=== PATIENT | male | born 1990 | race Caucasian/White ===

== ENCOUNTER 2019-08-17 08:50 | Emergency (ER) | payer SELFPAY ==
[2019-08-17] MEDS ORDERED: LORazepam 2 MG/ML VIAL ONE (09:22)
[2019-08-17 09:30] LABS: Protime INR 1.06
[2019-08-17 09:31] LABS: Hematocrit 42.2 % (39.6-49.0); Lymphocytes % 27.8 % (15.3-44.8); RBC Red Blood Cell Count 5.18 M/uL (4.33-5.43)
[2019-08-17 09:48] LABS: ALT/SGPT 44 U/L (12-78); AST/SGOT 31 U/L (15-37); Albumin 4.1 g/dL (3.4-5.0); Alkaline Phosphatase 104 U/L (45-117); BUN Blood Urea Nitrogen 13 mg/dL (7-18); Bicarbonate 28 mmol/L (21-32); Bilirubin Direct < 0.1 mg/dL (0-0.2); Bilirubin Total 0.4 mg/dL (0.2-1.0); Glucose Level 104 mg/dL (74-106); Magnesium 2.1 mg/dL (1.8-2.4); NT PRO-BNP 15 pg/mL (<125); Potassium 3.9 mmol/L (3.5-5.1); Protein, Total 7.9 g/dL (6.4-8.2); Sodium Level 140 mmol/L (136-145); Troponin (Emerg Dept Use Only) < 0.02 ng/mL (0.0-0.045)
--- NOTE | 2019-08-17 10:25 | ER ---
Nurse's Notes [facility] Name: Jakob Mckeon Age: 29 yrs Sex: Male : 1990 Arrival Date: 08/17/2019 Time: 08:53 Bed 8 Private MD: Melita Toure K Diagnosis: Chest pain, unspecified Presentation: 08/16 09:06 Chief complaint: Left sided chest pressure that radiates to left arm and left upper arm hb numbness upon waking today. Coronavirus screen: Proceed with normal triage. Ebola Screen: No symptoms or risks identified at this time. Initial Sepsis Screen: Does the patient meet any 2 criteria? No. Patient's initial sepsis screen is negative. Does the patient have a suspected source of infection? No. Patient's initial sepsis screen is negative. Risk Assessment: Do you want to hurt yourself or someone else? Patient reports no desire to harm self or others. Onset of symptoms was August 17, 2019 at 06:00. 09:06 Method Of Arrival: Ambulatory hb 09:06 Acuity: REMI 3 hb Triage Assessment: 09:08 General: Appears in no apparent distress. Behavior is calm, cooperative. Pain: Pain hb radiates to left arm Pain currently is 3 out of 10 on a pain scale. EENT: No signs and/or symptoms were reported regarding the EENT system. Neuro: Level of Consciousness is awake, alert, obeys commands, Oriented to person, place, time, situation. Cardiovascular: Capillary refill < 3 seconds Patient's skin is warm and dry. Respiratory: Airway is patent Respiratory effort is even, unlabored, Respiratory pattern is regular, symmetrical. GI: No signs and/or symptoms were reported involving the gastrointestinal system. : No signs and/or symptoms were reported regarding the genitourinary system. Derm: Skin is pink, warm \T\ dry. Musculoskeletal: No signs and/or symptoms reported regarding the musculoskeletal system. Historical: - Allergies: :08 No Known Drug Allergies; hb - Home Meds: :08 None [Active]; hb - PMHx: :08 None; hb - PSHx: 09:08 eye sx; hb - Immunization history:: Adult Immunizations up to date. - Social history:: Smoking status: Patient reports the use of cigarette tobacco products, smokes one-half pack cigarettes per day. Screenin:09 Abuse screen: Denies threats or abuse. Denies injuries from another. Nutritional hb screening: No deficits noted. Tuberculosis screening: No symptoms or risk factors identified. Fall Risk None identified. Assessment: 09:08 General: see triage assessment. hb 10:00 Reassessment: Patient appears in no apparent distress at this time. Patient and/or hb family updated on plan of care and expected duration. Pain level reassessed. Patient is alert, oriented x 3, equal unlabored respirations, skin warm/dry/pink. Vital Signs: 09:06 BP 139 / 90; Pulse 73; Resp 16; Temp 97.8; Pulse Ox 100% ; Weight 85.73 kg; Height 6 hb ft. 1 in. (185.42 cm); Pain 3/10; 10:00 BP 121 / 83; Pulse 70; Resp 15; Pulse Ox 99% on R/A; hb 09:06 Body Mass Index 24.94 (85.73 kg, 185.42 cm) hb ED Course: 08:53 Patient arrived in ED. mr 08:54 Melita Toure MD is Private Physician. mr 09:00 Jeremiah Myers PA is PHCP. jmm 09:00 Lawson Hoff MD is Attending Physician. jmm 09:06 Ely Jeffery, NIDIA is Primary Nurse. hb 09:07 Triage completed. hb 09:08 Arm band placed on. hb 09:09 Patient has correct armband on for positive identification. Placed in gown. Bed in low hb position. Call light in reach. Side rails up X 1. 09:16 Inserted saline lock: 20 gauge in right antecubital area, using aseptic technique. hb Blood collected. 09:22 EKG done, by ED staff, reviewed by Jeremiah MAYFIELD. dh3 09:36 XRAY Chest (1 view) In Process Unspecified. EDMS 10:24 Melita Toure MD is Referral Physician. [facility] 10:43 No provider procedures requiring assistance completed. IV discontinued, intact, hb bleeding controlled, No redness/swelling at site. Pressure dressing applied. Administered Medications: 09:18 Drug: Ativan 0.5 mg Route: IVP; Site: right antecubital; hb Outcome: 10:24 Discharge ordered by . jm 10:43 Discharged to home ambulatory. hb 10:43 Condition: stable 10:43 Discharge instructions given to patient, Instructed on discharge instructions, follow up and referral plans. medication usage, Demonstrated understanding of instructions, follow-up care, medications. 10:44 Patient left the ED. Signatures: Dispatcher [employer] EDJeremiah Colin PA PA jmm Rivera, Mary mr Ely Jeffery RN RN [place] Damon [facility]
--- NOTE | 2019-08-17 10:25 | EDPHYS ---
Physician Documentation [facility] Name: Jakob Mckeon Age: 29 yrs Sex: Male : 1990 Arrival Date: 08/17/2019 Time: 08:53 Bed 8 Private MD: Melita Toure K ED Physician Lawson Hoff HPI: 08/16 09:16 This 29 yrs old Male presents to ER via Ambulatory with complaints of Chest jmm Pressure. 09:16 The patient or guardian reports chest pain that is located primarily in the substernal jmm area. The pain does not radiate. Associated signs and symptoms: Pertinent positives: diarrhea. The chest pain is described as a pressure. Duration: The patient or guardian reports a single episode, that is still ongoing, but improving. Modifying factors: The symptoms are alleviated by nothing. the symptoms are aggravated by nothing. This is a 29 year old male with no chronic medical conditions that presents to the ED with complaints of left sided substernal chest pain described as pressure beginning this morning at 0630. Patient also admits to 1 episode of loose stool. Patient denies vomiting or abdominal pain. . Historical: - Allergies: 09:08 No Known Drug Allergies; hb - Home Meds: 09:08 None [Active]; hb - PMHx: 09:08 None; hb - PSHx: 09:08 eye sx; hb - Immunization history:: Adult Immunizations up to date. - Social history:: Smoking status: Patient reports the use of cigarette tobacco products, smokes one-half pack cigarettes per day. ROS: 09:16 Constitutional: Negative for fever, chills, and weight loss. jmm 09:16 Cardiovascular: Positive for chest pain. 09:16 Abdomen/GI: Positive for diarrhea, Negative for vomiting. 09:16 All other systems are negative. Exam: 09:16 Constitutional: This is a well developed, well nourished patient who is awake, alert, jmm and in no acute distress. Head/Face: atraumatic. Eyes: EOMI, no conjunctival erythema appreciated ENT: Moist Mucus Membranes Neck: Trachea midline, Supple Chest/axilla: Normal chest wall appearance and motion. Cardiovascular: Regular rate and rhythm. No edema appreciated Respiratory: Normal respirations, no respiratory distress appreciated Abdomen/GI: Non distended, soft Back: Normal ROM Skin: General appearance color normal MS/ Extremity: Moves all extremities, no obvious deformities appreciated, no edema noted to the lower extremities Neuro: Awake and alert, normal gait Psych: Behavior is normal, Mood is normal, Patient is cooperative and pleasant 09:40 ECG was reviewed by the Attending Physician. [facility] Vital Signs: 09:06 BP 139 / 90; Pulse 73; Resp 16; Temp 97.8; Pulse Ox 100% ; Weight 85.73 kg; Height 6 hb ft. 1 in. (185.42 cm); Pain 3/10; 10:00 BP 121 / 83; Pulse 70; Resp 15; Pulse Ox 99% on R/A; hb 09:06 Body Mass Index 24.94 (85.73 kg, 185.42 cm) hb MDM: 09:03 Patient medically screened. [facility] 10:18 Data reviewed: vital signs, nurses notes, lab test result(s), EKG, radiologic studies, [facility] plain films. ED course: PERC NEGATIVE. HEART SCORE = 0. ED course: Patient is advised to follow up with pcp and otherwise given strict return precautions. Patient understood and agrees with the plan of care. . 08/16 09:09 Order name: Basic Metabolic Panel; Complete Time: 09:50 [facility] 08/16 09:09 Order name: CBC with Diff; Complete Time: 09:40 [facility] 08/16 09:09 Order name: LFT's; Complete Time: 09:50 [facility] 08/16 09:09 Order name: Magnesium; Complete Time: 09:50 [facility] 08/16 09:09 Order name: NT PRO-BNP; Complete Time: 09:50 [facility] 08/16 09:09 Order name: PT-INR; Complete Time: 09:40 [facility] 08/16 09:09 Order name: Troponin (emerg Dept Use Only); Complete Time: 09:50 [facility] 08/16 09:09 Order name: XRAY Chest (1 view) [facility] 08/16 09:09 Order name: EKG; Complete Time: 09:10 [facility] 08/16 09:09 Order name: Cardiac monitoring; Complete Time: 09:18 [facility] 08/16 09:09 Order name: EKG - Nurse/Tech; Complete Time: 09:19 [facility] 08/16 09:09 Order name: IV Saline Lock; Complete Time: :18 [facility] 08/16 09:09 Order name: Labs collected and sent; Complete Time: [facility] 08/16 09:09 Order name: O2 Per Protocol; Complete Time: [facility] 08/16 09: Order name: O2 Sat Monitoring; Complete Time: EC:40 Rate is 62 beats/min. Rhythm is regular. QRS Bradford is Normal. NE interval is normal. QRS jmm interval is normal. QT interval is normal. No Q waves. T waves are Normal. No ST changes noted. Reviewed by me. Administered Medications: Drug: Ativan 0.5 mg Route: IVP; Site: right antecubital; hb Disposition: 14:17 Co-signature as Attending Physician, Lawson Hoff MD. rn Disposition: 08/17/19 10:24 Discharged to Home. Impression: Chest pain, unspecified. - Condition is Stable. - Discharge Instructions: Nonspecific Chest Pain. - Medication Reconciliation Form, Thank You Letter, Antibiotic Education, Prescription Opioid Use form. - Follow up: Melita Toure MD; When: 1 - 2 days; Reason: Recheck today's complaints, Continuance of care, Re-evaluation by your physician. Signatures: Dispatcher [employer] EDMS Jeremiah Myers PA PA [facility] Lawson Hoff MD MD rn Baxter, Heather, RN RN Corrections: (The following items were deleted from the chart) 10:44 10:24 08/17/2019 10:24 Discharged to Home. Impression: Chest pain, unspecified. hb Condition is Stable. Forms are Medication Reconciliation Form, Thank You Letter, Antibiotic Education, Prescription Opioid Use. Follow up: Melita Toure; When: 1 - 2 days; Reason: Recheck today's complaints, Continuance of care, Re-evaluation by your physician. [facility]
--- NOTE | 2019-08-17 10:51 | RAD REPORT ---
EXAM DESCRIPTION: Ac Single View08/17/2019 9:38 am CLINICAL HISTORY: Chest pain COMPARISON: 2017 FINDINGS: The lungs appear clear of acute infiltrate. The heart is normal size IMPRESSION: No acute abnormalities displayed
[2019-08-17 10:52] VITALS: TEMP 97.8
[2019-08-17 10:53] VITALS: BP 121/83; O2SAT 99
== END 2019-08-17 10:44 | disposition home or self-care (01) ==
LOC: ER 08:50
DX: R07.9 Chest pain, unspecified (principal); R19.7 Diarrhea, unspecified; F17.210 Nicotine dependence, cigarettes, uncomplicated
CPT/HCPCS: 36415; 71045; 80048; 80076; 83735; 83880; 84484; 85025; 85610; 93005; 96374; 99284

== ENCOUNTER 2020-06-19 19:59 | Emergency (ER) | payer SELFPAY ==
[2020-06-19] MEDS ORDERED: CLINDAMYCIN IV 150 MG/ML (4 mL) VIAL ONE (21:52)
--- NOTE | 2020-06-19 21:57 | ER ---
Nurse's Notes [facility] Name: Jakob Mckeon Age: 29 yrs Sex: Male : 1990 Arrival Date: 06/19/2020 Time: 20:02 Bed 8 Private MD: Diagnosis: Dental pain Presentation: 06/19 20:31 Chief complaint: Patient states: Woke up this morning with swelling on L side of face ca1 and L jaw, L side of neck. Denies difficulty breathing. Reports pain with swallowing. Coronavirus screen: Client denies travel out of the [place] in the last 14 days. At this time, the client does not indicate any symptoms associated with coronavirus-19. Ebola Screen: Patient negative for fever greater than or equal to 101.5 degrees Fahrenheit, and additional compatible Ebola Virus Disease symptoms Patient denies exposure to infectious person. Patient denies travel to an Ebola-affected area in the 21 days before illness onset. No symptoms or risks identified at this time. Initial Sepsis Screen: Does the patient meet any 2 criteria? No. Patient's initial sepsis screen is negative. Does the patient have a suspected source of infection? No. Patient's initial sepsis screen is negative. Risk Assessment: Do you want to hurt yourself or someone else? Patient reports no desire to harm self or others. 20:31 Method Of Arrival: Ambulatory ca1 20:31 Acuity: REMI 3 ca1 21:40 Onset of symptoms is unknown. rv Historical: - Allergies: 20:33 No Known Allergies; ca1 - Home Meds: 20:33 None [Active]; ca1 - PMHx: 20:33 None; ca1 - PSHx: 20:33 eye surgery; ca1 - Immunization history:: Flu vaccine is not up to date. - Social history:: Smoking status: Patient reports use of chewing tobacco. Screenin:40 Abuse screen: Denies threats or abuse. Denies injuries from another. Nutritional rv screening: No deficits noted. Tuberculosis screening: No symptoms or risk factors identified. Fall Risk None identified. Assessment: 21:39 General: Appears uncomfortable, Behavior is calm, cooperative. Pain: Complains of pain rv in left cheek and left jaw. Neuro: Level of Consciousness is awake, alert, obeys commands, Oriented to person, place, time, situation. Cardiovascular: Patient's skin is warm and dry. Respiratory: Airway is patent Respiratory effort is even, unlabored. Derm: Skin is intact. Vital Signs: 20:31 BP 126 / 78; Pulse 81; Resp 16 S; Temp 98(TE); Pulse Ox 100% on R/A; Weight 81.65 kg ca1 (R); Height 6 ft. 0 in. (182.88 cm) (R); Pain 6/10; 22:13 BP 121 / 76; Pulse 76; Resp 16; Pulse Ox 100% on R/A; rv 20:31 Body Mass Index 24.41 (81.65 kg, 182.88 cm) ca1 ED Course: 20:02 Patient arrived in ED. bp1 20:33 Triage completed. ca1 20:33 Arm band placed on right wrist. ca1 21:04 Wild Helm NP is PHCP. pm1 21:04 Balwinder Reis MD is Attending Physician. pm1 21:20 Antwan Doe RN is Primary Nurse. rv 21:40 Patient has correct armband on for positive identification. Pulse ox on. NIBP on. rv 22:12 No provider procedures requiring assistance completed. Patient did not have IV access rv during this emergency room visit. Administered Medications: 21:39 Drug: Clindamycin 600 mg {Note: given right and left deltoid..} Route: IM; Site: left rv deltoid; 22:13 Follow up: Response: No adverse reaction rv Outcome: 21:56 Discharge ordered by . pm1 22:12 Discharged to home ambulatory, with family. rv 22:12 Condition: good 22:12 Discharge instructions given to patient, Instructed on discharge instructions, follow up and referral plans. medication usage, Demonstrated understanding of instructions, follow-up care, medications, Prescriptions given X 1. 22:13 Patient left the ED. rv Signatures: Wild Helm NP GRAIN SAMPLER pm1 Antwan Doe RN RN rv Nicole Saravia RN RN ca1 Chetna Carlin bp1
--- NOTE | 2020-06-19 21:57 | EDPHYS ---
Physician Documentation [facility] Name: Jakob Mckeon Age: 29 yrs Sex: Male : 1990 Arrival Date: 06/19/2020 Time: 20:02 Bed 8 Private MD: ED Physician Balwinder Reis HPI: 06/19 22:13 This 29 yrs old Male presents to ER via Ambulatory with complaints of Facial pm1 Swelling. 22:13 The patient presents with pain, swelling. The problem is located in the upper left pm1 first molar, upper left second molar and upper left third molar. Onset: The symptoms/episode began/occurred 1 month(s) ago. Duration: The symptoms are continuous. Modifying factors: The symptoms are alleviated by nothing, the symptoms are aggravated by chewing, food. Associated signs and symptoms: Pertinent positives: lymph node swelling to left side of neck yesterday. Severity of symptoms: in the emergency department the symptoms are actually worse. The patient has not recently seen a physician. Historical: - Allergies: 20:33 No Known Allergies; ca1 - Home Meds: 20:33 None [Active]; ca1 - PMHx: 20:33 None; ca1 - PSHx: 20:33 eye surgery; ca1 - Immunization history:: Flu vaccine is not up to date. - Social history:: Smoking status: Patient reports use of chewing tobacco. ROS: 22:13 Constitutional: Negative for fever, chills, and weight loss. pm1 22:13 Cardiovascular: Negative for chest pain, palpitations, and edema, Respiratory: Negative for shortness of breath, cough, wheezing, and pleuritic chest pain, Skin: Negative for injury, rash, and discoloration, Neuro: Negative for headache, weakness, numbness, tingling, and seizure. 22:13 ENT: Positive for dental pain, Negative for ear pain, sore throat, difficulty swallowing, difficulty handling secretions, hoarseness. 22:13 Neck: Positive for swollen nodes, of the left sternocleidomastoid. Exam: 22:13 Constitutional: This is a well developed, well nourished patient who is awake, alert, pm1 and in no acute distress. Head/Face: Normocephalic, atraumatic. 22:13 Skin: Warm, dry with normal turgor. Normal color with no rashes, no lesions, and no evidence of cellulitis. MS/ Extremity: Pulses equal, no cyanosis. Neurovascular intact. Full, normal range of motion. 22:13 ENT: Posterior pharynx: no acute changes, Dental exam: dental caries, diffusely, specifically in the upper left first molar (#14), upper left second molar (#15), upper left third molar (#16), lower left third molar (#17), lower left second molar (#18) and lower left first molar (#19), gum swelling, that is moderate, specifically in the upper left first molar (#14), upper left second molar (#15) and upper left third molar (#16). 22:13 Neck: Lymph nodes: lymphadenopathy is appreciated, anterior cervical nodes. 22:13 Cardiovascular: Exam negative for acute changes, Rate: normal, Rhythm: regular, Pulses: no pulse deficits are appreciated. 22:13 Respiratory: Exam negative for acute changes, respiratory distress, shortness of breath. 22:13 Neuro: Exam negative for acute changes, Orientation: is normal, Mentation: is normal, Motor: is normal, moves all fours. Vital Signs: 20:31 BP 126 / 78; Pulse 81; Resp 16 S; Temp 98(TE); Pulse Ox 100% on R/A; Weight 81.65 kg ca1 (R); Height 6 ft. 0 in. (182.88 cm) (R); Pain 6/10; 22:13 BP 121 / 76; Pulse 76; Resp 16; Pulse Ox 100% on R/A; rv 20:31 Body Mass Index 24.41 (81.65 kg, 182.88 cm) ca1 MDM: 21:04 Patient medically screened. pm1 21:54 Data reviewed: vital signs. Data interpreted: Pulse oximetry: on room air is 100 %. pm1 Interpretation: normal. Counseling: I had a detailed discussion with the patient and/or guardian regarding: the historical points, exam findings, and any diagnostic results supporting the discharge/admit diagnosis, the need for outpatient follow up, for definitive care, a dentist, an oral maxilofacial specialist, to return to the emergency department if symptoms worsen or persist or if there are any questions or concerns that arise at home. 21:54 ED course: Patient is a tobacco chewer. Swelling to gums concerning for mouth cancer. pm1 Informed the patient it is imperative that he follow up with his PCP, dentist, and/or OMFS for further evaluation and treatment. Administered Medications: 21:39 Drug: Clindamycin 600 mg {Note: given right and left deltoid..} Route: IM; Site: left rv deltoid; 22:13 Follow up: Response: No adverse reaction rv Disposition: 06/20 03:45 Co-signature as Attending Physician, Balwinder Reis MD. [email or web address] Disposition: 06/19/20 21:56 Discharged to Home. Impression: Dental pain. - Condition is Stable. - Discharge Instructions: Dental Pain. - Prescriptions for Clindamycin HCl 300 mg Oral Capsule - take 1 capsule by ORAL route every 6 hours for 10 days; 40 capsule. - Medication Reconciliation Form, Thank You Letter, Antibiotic Education, Prescription Opioid Use, Work release form, Family Work Release form. - Follow up: Emergency Department; When: As needed; Reason: Worsening of condition. Follow up: Private Physician; When: 2 - 3 days; Reason: Recheck today's complaints, Continuance of care, Re-evaluation by your physician. - Problem is new. - Symptoms have improved. Signatures: Wild Helm, GROUP SEGMENT CONSULTANT GROUP SEGMENT CONSULTANT pm1 Antwan Doe RN RN Nicole Saravia RN RN [facility] Balwinder Reis MD MD 7 Corrections: (The following items were deleted from the chart) 06/19 22:13 21:56 06/19/2020 21:56 Discharged to Home. Impression: Dental pain. Condition is rv Stable. Forms are Medication Reconciliation Form, Thank You Letter, Antibiotic Education, Prescription Opioid Use. Follow up: Emergency Department; When: As needed; Reason: Worsening of condition. Follow up: Private Physician; When: 2 - 3 days; Reason: Recheck today's complaints, Continuance of care, Re-evaluation by your physician. Problem is new. Symptoms have improved. pm1
[2020-06-19 22:20] VITALS: TEMP 98; O2SAT 100
[2020-06-19 22:21] VITALS: BP 121/76
== END 2020-06-19 22:13 | disposition home or self-care (01) ==
LOC: ER 19:59
DX: K02.9 Dental caries, unspecified (principal); F17.220 Nicotine dependence, chewing tobacco, uncomplicated
CPT/HCPCS: 96372; 99283; S0077

== ENCOUNTER 2021-08-08 19:36 | Inpatient (IN) | payer SELFPAY ==
--- NOTE | 2021-08-08 21:17 | ER ---
Nurse's Notes [facility] Name: Jakob cMkeon Age: 30 yrs Sex: Male : 1990 Arrival Date: 08/08/2021 Time: 19:43 Bed 15 Private MD: Diagnosis: Cyst of the Right 2nd Phalanx Presentation: 08/08 19:56 Chief complaint: Patient states: I have a lump on my right index finger. It has been jb4 there for 6-8 months. It was very small at first, now it is much larger. Coronavirus screen: At this time, the client does not indicate any symptoms associated with coronavirus-19. Ebola Screen: No symptoms or risks identified at this time. Initial Sepsis Screen: Does the patient meet any 2 criteria? No. Patient's initial sepsis screen is negative. Does the patient have a suspected source of infection? No. Patient's initial sepsis screen is negative. Risk Assessment: Do you want to hurt yourself or someone else? Patient reports no desire to harm self or others. Onset of symptoms was August 08, 2021. Transition of care: patient was not received from another setting of care. 19:56 Method Of Arrival: Ambulatory jb4 19:56 Acuity: REMI 4 jb4 Historical: - Allergies: 19:59 No Known Allergies; jb4 - Home Meds: 19:59 Lexapro Oral [Active]; jb4 - PMHx: 19:59 depression/anxiety; jb4 - PSHx: 19:59 Left eye; jb4 - Immunization history:: Adult Immunizations up to date. - Social history:: Smoking status: Patient reports use of chewing tobacco. Screenin:30 Abuse screen: Denies threats or abuse. Nutritional screening: No deficits noted. jb4 Tuberculosis screening: No symptoms or risk factors identified. Fall Risk None identified. Assessment: 20:30 General: Appears in no apparent distress. comfortable, Behavior is calm, cooperative, jb4 appropriate for age, Mass noted to the right index finger.. Pain: Denies pain. Neuro: Level of Consciousness is awake, alert, obeys commands, Oriented to person, place, time, situation. Cardiovascular: Patient's skin is warm and dry. Respiratory: Airway is patent Respiratory effort is even, unlabored, Respiratory pattern is regular, symmetrical. Derm: Skin is intact, Skin is pink, warm \T\ dry. Musculoskeletal: Circulation, motion, and sensation intact. Range of motion: intact in all extremities. 21:47 Reassessment: Patient appears in no apparent distress at this time. Patient and/or jb4 family updated on plan of care and expected duration. Pain level reassessed. Patient is alert, oriented x 3, equal unlabored respirations, skin warm/dry/pink. Vital Signs: 19:56 BP 127 / 78; Pulse 89; Resp 16; Temp 98.5; Pulse Ox 99% on R/A; Weight 94.35 kg (R); jb4 Height 6 ft. 0 in. (182.88 cm); Pain 5/10; 21:55 BP 116 / 76; Pulse 76; Resp 16; Temp 98.1(TE); Pulse Ox 100% ; Pain 2/10; jb4 19:56 Body Mass Index 28.21 (94.35 kg, 182.88 cm) jb4 ED Course: 19:43 Patient arrived in ED. ja2 19:59 Triage completed. jb4 19:59 Arm band placed on right wrist. jb4 20:00 Jeremiah Myers PA is PHCP. [facility] 20:01 Balwinder Reis MD is Attending Physician. [facility] 20:30 Patient has correct armband on for positive identification. Bed in low position. Call [facility] light in reach. Side rails up X 1. Client placed on continuous cardiac and pulse oximetry monitoring. NIBP monitoring applied. 21:15 Lawson Hoff MD is Hospitalizing Provider. [facility] 21:15 Kan Hoff MD is Hospitalizing Provider. [facility] 21:38 Inserted saline lock: 18 gauge in right antecubital area, using aseptic technique. mw1 21:44 Kirby Murrieta, RN is Primary Nurse. jb4 21:48 No provider procedures requiring assistance completed. Patient admitted, IV remains in jb4 place. 08/09 07:57 Primary Nurse role handed off by Kirby Murrieta, RN ll1 08:12 Kita Servin, NIDIA is Primary Nurse. jg9 Administered Medications: 08/08 21:11 CANCELLED (Physician Discretion): Ancef (cefazolin) 1 grams IVPB once la1 Medication: 21:47 VIS not applicable for this client. jb4 Outcome: 21:16 Decision to Hospitalize by Provider. alexi 21:48 Admitted to ER Hold. Please see [facility] for further documentation. jbPerla 21:48 Condition: stable 21:48 Discharge instructions given to patient, Instructed on the need for admit, Demonstrated understanding of instructions. 08/09 13:03 Patient left the ED. Signatures: Jeremiah Myers PA PA jmm Smirch, Shelby, NIDIA RN Kirby Murrieta RN RN jb4 Herbert Acevedo 1 Stephanie Green RN RN 1 Amparo Feng Kita Foster RN RN jg9 Param Curiel [facility]
--- NOTE | 2021-08-08 21:17 | EDPHYS ---
Physician Documentation [facility] Name: Jakob Mckeon Age: 30 yrs Sex: Male : 1990 Arrival Date: 08/08/2021 Time: 19:43 Bed 15 Private MD: ED Physician Balwinder Reis HPI: 08/08 20:32 This 30 yrs old Male presents to ER via Ambulatory with complaints of Lump on Finger. jmm 20:32 The patient or guardian reports pain. Onset: The symptoms/episode began/occurred jmm gradually, 6 month(s) ago. This is a 30 year old male with a history of depression, anxiety that presents to the ED with complains of a mass to his right 2nd finger beginning approx 6 months ago. Pain has increased to the point of being unable to use the hand for work. . Historical: - Allergies: 19:59 No Known Allergies; jb4 - Home Meds: 19:59 Lexapro Oral [Active]; jb4 - PMHx: 19:59 depression/anxiety; jb4 - PSHx: 19:59 Left eye; jb4 - Immunization history:: Adult Immunizations up to date. - Social history:: Smoking status: Patient reports use of chewing tobacco. ROS: 20:32 Constitutional: Negative for fever, chills, and weight loss, Cardiovascular: Negative jmm for chest pain, palpitations, and edema, Respiratory: Negative for shortness of breath, cough, wheezing, and pleuritic chest pain. 20:32 MS/extremity: Positive for pain, swelling. 20:32 All other systems are negative. Exam: 20:32 Constitutional: This is a well developed, well nourished patient who is awake, alert, jmm and in no acute distress. Head/Face: atraumatic. Eyes: EOMI, no conjunctival erythema appreciated ENT: Moist Mucus Membranes Neck: Trachea midline, Supple Chest/axilla: Normal chest wall appearance and motion. Cardiovascular: Regular rate and rhythm. No edema appreciated Respiratory: Normal respirations, no respiratory distress appreciated Abdomen/GI: Non distended, soft Back: Normal ROM Skin: General appearance color normal 20:32 Musculoskeletal/extremity: swelling mass noted to the base of the right 2nd finger on the palmar surface, < 2 sec distal cap refill, FROM, NVI. 20:32 Skin: Appearance: Color: normal in color. 20:32 Neuro: Orientation: is normal, Mentation: is normal, Memory: is normal. 20:32 Psych: Behavior/mood is pleasant, cooperative. Vital Signs: 19:56 BP 127 / 78; Pulse 89; Resp 16; Temp 98.5; Pulse Ox 99% on R/A; Weight 94.35 kg (R); jb4 Height 6 ft. 0 in. (182.88 cm); Pain 5/10; 21:55 BP 116 / 76; Pulse 76; Resp 16; Temp 98.1(TE); Pulse Ox 100% ; Pain 2/10; jb4 19:56 Body Mass Index 28.21 (94.35 kg, 182.88 cm) jb4 MDM: 20:32 Patient medically screened. [facility] 21:14 Data reviewed: vital signs, nurses notes. Counseling: I had a detailed discussion with alexi the patient and/or guardian regarding: the historical points, exam findings, and any diagnostic results supporting the discharge/admit diagnosis, the need for further work-up and treatment in the hospital. ED course: I discussed the patient with Dr. Knott whom recommended admitting for surgery in the AM. I discussed the patient with Param Curiel whom accepted the patient to Dr. Hoff's service. . 08/08 21:03 Order name: CBC with Diff; Complete Time: 22:03 [facility] 08/08 21:03 Order name: BMP; Complete Time: 22:03 [facility] 08/08 21:03 Order name: Saline Lock; Complete Time: 21:44 [facility] 08/08 21:04 Order name: SARS-COV-2 RT PCR (Document "Date of Onset" if Symptomatic); Complete Time: [facility] 22:45 08/09 08:03 Order name: Urinalysis EDMS Administered Medications: 21:11 CANCELLED (Physician Discretion): Ancef (cefazolin) 1 grams IVPB once la1 Disposition Summary: 08/08/21 21:16 Hospitalization Ordered Hospitalization Status: Observation [facility] Provider: Kan Hoff Condition: Stable jm Problem: new jmm Symptoms: are unchanged [facility] Bed/Room Type: Standard [facility] Location: [facility] ER HOLD(08/09/21 09:15) Room Assignment: ERHOLD-(08/09/21 09:15) Diagnosis - Cyst of the Right 2nd Phalanx [facility] Forms: - Medication Reconciliation Form [facility] - SBAR form [facility] Addendum: 08/12/2021 04:57 Co-signature as Attending Physician, Balwinder Reis MD. [facility] Signatures: Dispatcher [employer] EDMS Thelma Foss RN RN Jeremiah Myers PA PA jm Yenny Pastor RN RN Kirby Murrieta RN RN jb4 Balwinder Reis MD MD [id number] Param Curiel [facility] Corrections: (The following items were deleted from the chart) 08/08 21:11 21:03 Ancef (cefazolin) 1 grams IVPB once ordered. [facility] la1 21:32 21:16 Telemetry/MedSurg (observation) [facility] 21:32 21:16 [facility] 08/09 06:21 06 21:32 [facility] ER HOLD [facility] 08/09 06:21 [id number] 21:32 ERHOLD- [facility] 08/09 09:15 06:21 Operating Room [facility] 09:15 06:21 mw
[2021-08-08 21:58] LABS: Absolute Lymphocytes (CBC) 2.5 K/uL (0.7-4.9); Hematocrit 38.9 % (39.6-49.0); Lymphocytes % 31.8 % (15.3-44.8); MPV 8.2 fL (7.6-11.3)
[2021-08-08 22:00] LABS: Potassium 3.5 mmol/L (3.5-5.1)
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
[2021-08-09 00:20] VITALS: BMI 28.2
[2021-08-09] MEDS ORDERED: ONDANSETRON 4 MG/2 ML VIAL IV PRN (03:48)
[2021-08-09] MEDS ORDERED: ACETAMINOPHEN 500 MG TAB PO PRN (03:48)
[2021-08-09 08:03] LABS: Urine Appearance Clear (Clear); Urine Bilirubin Negative (Negative); Urine Blood Negative (Negative); Urine Color Yellow (Yellow); Urine Glucose Negative (Negative); Urine Protein Negative (Negative); Urine Specific Gravity >=1.030 (1.005-1.030); Urine Urobilinogen 0.2 mg/dL (0.2-1.0); Urine pH 5.5 (5.0-7.0)
[2021-08-09 08:09] LABS: Urine Microscopic Reflex NO UMIC
[2021-08-09] MEDS ORDERED: Ringers Lactate 1,000 ML IV ONE (12:23)
[2021-08-09] MEDS ORDERED: SCOPOLAMINE HYDROBROMIDE PATCH TD ONE ×2 (12:23→12:27)
[2021-08-09] MEDS ORDERED: MIDAZOLAM HCL 2 MG/2 ML INJ ONE (12:38)
[2021-08-09] MEDS ORDERED: FENTANYL CITR 100 MCG/2 ML ONE (12:38)
[2021-08-09] MEDS ORDERED: LIDOCAINE 1% MPF 5 ML VIAL ONE (12:38)
[2021-08-09] MEDS ORDERED: propofoL 200 MG/20 ML VIAL IV ONE ×2 (12:38→13:21)
[2021-08-09] MEDS ORDERED: CEFAZOLIN SODIUM 1 GM/VIAL ONE (13:06)
[2021-08-09] MEDS ORDERED: ONDANSETRON 4 MG/2 ML VIAL ONE (13:27)
[2021-08-09] MEDS ORDERED: KETOROLAC 30 MG/ML INJ ONE (13:27)
[2021-08-09] MEDS ORDERED: dexAMETHasone 10 MG/ML VIAL ONE (13:27)
[2021-08-09] MEDS: HYDROMORPHONE HCL 1 MG/ML INJ ONE ×3 (14:23→14:30)
[2021-08-09 14:40] VITALS: O2SAT 98
--- NOTE | 2021-08-09 14:58 | HP ---
Date of Admission: 08/09/2021 History Of Present Illness: A 30-year-old white male, who is right-hand dominant. There is a mass o f the right finger, it has been growing over a period of 6 months. He has intact sensation and incre asing size. Past Medical History: No medical. Past Surgical History: No surgery for this. Social History: He smokes. He drinks alcohol rarely. Medications: He is on Lexapro. Allergies: HE HAS NO ALLERGIES. Physical Examination: 6 feet, 207 pounds. On the volar aspect of his right index finger, ulnar side at the web area, there was a discolored mass, it looks like giant cell tumor. Assessment: Giant cell tumor. Plan: Excision. VALDEZ Voice ID: [id number]
--- NOTE | 2021-08-09 15:16 | OP ---
Surgeon: Brenton Knott MD Preoperative Diagnosis: Mass of the right index finger. Postoperative Diagnosis: Giant cell tumor. Procedure Performed: Excision of giant cell tumor. Anesthesia: General. Procedure In Detail: After satisfactory induction of general anesthesia, the right hand was prepped with Betadine scrub and Betadine paint. Dry sterile drapes were applied in the usual manner. Hand w as elevated, exsanguinated with an Esmarch, tourniquet inflated to 250 mmHg. Hand was placed on a ro ll lock table. An incision was made on the ulnar side of the index finger from the MCP to the PIP and extending in a Winsome manner over the palmar surface of the middle phalanx. Flap was e levated off the tumor. It appears to be a giant cell tumor identified and retracted. The mass was excised in toto utilizing scissors. Tourniquet was released. Electrocautery was used for hemostasis. Wound was closed with 4-0 Prolene in vertical mattress . Dressed with Xerofor m, 2-inch Faby. The patient tolerated the procedure well and returned to recovery. PRIYANKA/TOSHA Voice ID: [id number] Report ID: [id number]
[2021-08-09] MEDS ORDERED: CODEINE 30MG/APAP 300MG TAB ONE (15:19)
[2021-08-09 15:42] VITALS: BP 110/74; TEMP 96.8
--- NOTE | 2021-08-13 22:03 | P.DS ---
Admission Date: 08/09/21 Discharge Date: 08/09/21 Disposition: ROUTINE DISCHARGE Discharge Condition: GOOD Reason for Admission: Right second phalanx mass Consultations: Dr. Knott Brief History of Present Illness: 30-year-old male history of anxiety and depression presented to the emergency department for pain and swelling to the proximal aspect of the right second finger he was examined in the ER found to have a cyst. ED provider discussed case with hand surgery who recommends observation overnight and evaluation in the morning for possible operative management. 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 Knott. 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 He was deemed stable for discharge home post-operatively by Dr. Knott. Discharged home to continue antibiotics and pain medication as needed. Follow up with Dr. Knott in a few days. Vital Signs/Physical Exam: Temp Pulse Resp BP Pulse Ox 96.8 F 56 18 110/74 99 08/09/21 15:36 08/09/21 15:36 08/09/21 15:36 08/09/21 15:36 08/09/21 08:00 General: Alert, In no apparent distress HEENT: Sclerae nonicteric Respiratory: Clear to auscultation bilaterally, Normal air movement Cardiovascular: No edema, Regular rate/rhythm Gastrointestinal: Soft and benign, Non-distended, No tenderness Musculoskeletal: Other (surgical dressing in place - right index finger) Neurological: Normal speech, Normal affect Laboratory Data at Discharge: WBC 7.9 K/uL (4.3-10.9) 08/08/21 21:30 Hgb 13.3 g/dL (13.6-17.9) L 08/08/21 21:30 Hct 38.9 % (39.6-49.0) L 08/08/21 21:30 Plt Count 257 K/uL (152-406) 08/08/21 21:30 Sodium 142 mmol/L (136-145) 08/08/21 21:30 Potassium 3.5 mmol/L (3.5-5.1) 08/08/21 21:30 BUN 13 mg/dL (7-18) 08/08/21 21:30 Creatinine 1.04 mg/dL (0.55-1.3) 08/08/21 21:30 Glucose 102 mg/dL (74-106) 08/08/21 21:30 Home Medications: Cephalexin [Keflex] 500 mg PO Q6HR #28 cap 08/09/21 Codeine/APAP [Tylenol W/Codeine #3 tab] 1 tab PO Q6HP PRN #30 tab 08/09/21 Escitalopram Oxalate [Lexapro] 10 mg PO BEDTIME 08/09/21 New Medications: Cephalexin [Keflex] 500 mg PO Q6HR #28 cap Codeine/APAP [Tylenol W/Codeine #3 tab] 1 tab PO Q6HP PRN #30 tab PRN Reason: Pain Physician Discharge Instructions: Diet: Regular Activity: as tolerated PHYSICIAN'S DISCHARGE INSTRUCTIONS Keep dressing dry, clean and intact until follow up with Dr. Knott on Saturday08-14-21 at 9am [place] office. Your antibiotic, Keflex has been sent to [facility] in [place] as prescribed by Dr. Knott. Dr. Hoff, the hospitalist will also be sending a prescription for pain to your pharmacy as well. Followup: Brenton Knott MD [ACTIVE - CAN ADMIT] - 08/14/21 9:00 am Melita Toure MD [Primary Care Provider] - Time spent managing pt's care (in minutes): 45
== END 2021-08-09 15:36 | disposition home or self-care (01) | DRG 514 ==
LOC: ER 19:36 → ERHOLD 22:26 → OBSVTOIN 08-09 07:53
PROVIDERS: ADMIT Hospitalist; ATTEND Hospitalist
PROC: 0LB70ZZ Excision of Right Hand Tendon, Open Approach (ICD-10-PCS; principal; 2021-08-09 12:00)
DX: D48.1 Neoplasm of uncertain behavior of connective and other soft tissue (principal); F41.8 Other specified anxiety disorders; Z20.822 Contact with and (suspected) exposure to COVID-19
CPT/HCPCS: 36415; 80048; 81003; 85025; 88304; 88307; 99285; G0378; J0690; J1100; J1170; J2250; J2405; J2704; J3010; J7120; U0003

== ENCOUNTER 2024-02-01 18:33 | Emergency (ER) | payer SELFPAY ==
[2024-02-01] MEDS ORDERED: NA CHLORIDE 0.9% 1,000 ML ONE (19:52)
[2024-02-01 20:17] LABS: Absolute Basophils 0.1 K/uL (0-0.5); Absolute Eosinophils 0.1 K/uL (0-0.5); Absolute Lymphocytes (CBC) 1.5 K/uL (0.7-4.9); Absolute Monocytes 0.5 K/uL (0.1-1.3); Absolute Neutrophil 4.4 K/uL (1.8-8.0); Eosinophils % 1.9 % (0-4.4); Hematocrit 40.8 % (39.6-49.0); Hemoglobin 13.8 g/dL (13.6-17.9); Lymphocytes % 22.8 % (15.3-44.8); MCH 28.1 pg (27.0-35.0); MCHC 33.8 g/dL (32.0-36.0); MCV 83.3 fL (80-100); MPV 8.5 fL (7.6-11.3); Monocytes % 7.9 % (3.3-12.3); Neutrophils % 66.4 % (41.7-73.7); Platelets 283 thou/uL (152-406); Red Cell Distribution Width 13.3 % (12.1-15.2)
[2024-02-01 20:18] LABS: Specific Gravity 1.016 (1.005-1.030); Urine Bilirubin NEGATIVE (Negative); Urine Blood Negative (Negative); Urine Clarity Clear (Clear); Urine Color Light-Yellow (Yellow); Urine Glucose NEGATIVE (Negative); Urine Ketones NEGATIVE (Negative); Urine Microscopic Reflex YN NO UMIC; Urine Nitrite NEGATIVE (Negative); Urine Protein NEGATIVE (Negative); Urine Urobilinogen 1+ (Normal); Urine pH 7.5 (5.0-7.0)
[2024-02-01 20:23] LABS: PT Prothrombin Time 13.8 SECONDS (9.4-12.5); Protime INR 1.24
[2024-02-01 20:35] LABS: Albumin/Globulin Ratio 1.1 (1.1-1.8); Anion Gap 7.5 mEq/L (5.0-15.0); Bilirubin Total 0.5 mg/dL (0.2-1.0); Globulin 3.8 g/dL (2.3-3.5); Potassium 3.5 mEq/L (3.5-5.1); Protein, Total 7.8 g/dL (6.4-8.2)
--- NOTE | 2024-02-01 21:04 | RAD REPORT ---
EXAMINATION: CT ABDOMEN AND PELVIS WITH CONTRAST CLINICAL INDICATION: Male, 33 years old.REctal bleeding painless TECHNIQUE: CT abdomen and pelvis was performed, after the administration of IV contrast, [facility]. Axial, sagittal and coronal reconstructions were obtained. One or more of the following dose reduction techniques were used: Automated exposure control, adjustment of the mA and/o r kV according to patient size, and/or iterative reconstruction. Unless otherwise specified, incidental findings do not require dedicated imaging follow-up. [id number]. COMPARISON: No prior exam. FINDINGS: LOWER CHEST: Mild cervical rectal thickening distal esophagus. Rectus size lower paraesophageal lymph nodes. LIVER: Normal in size and contour. No focal lesion. GALLBLADDER/BILE DUCT: No biliary ductal dilatation.? PANCREAS: No significant abnormality. SPLEEN: Normal size. No focal lesion. ADRENALS: Normal; no mass. KIDNEYS AND URETERS: Normal size and contour. No hydronephrosis. GASTROINTESTINAL TRACT: Stomach is non-dilated. Small bowel has normal course and caliber. No colonic wall thickening or pericolonic inflammatory changes. PERITONEUM: No ascites. LYMPH NODES: No lymphadenopathy. ABDOMINAL AORTA AND OTHER VESSELS: Normal caliber aorta and IVC. URINARY BLADDER: Normal contour. REPRODUCTIVE ORGANS: No pathologic process MUSCULOSKELETAL: No acute or suspicious osseous abnormality. ADDITIONAL FINDINGS: None. IMPRESSION: No acute or significant abnormalities seen in the abdomen or pelvis. Mild thickened distal esophagus with likely reactive lower paraesophageal lymph nodes that could reflect esophagitis. Endoscopy could further evaluate if clinically indicated.
--- NOTE | 2024-02-01 22:57 | ER ---
Nurse's Notes [facility] Name: Jakob Mckeon Age: 33 yrs Sex: Male : 1990 Arrival Date: 02/01/2024 Time: 18:33 Bed 12 Private MD: Diagnosis: Esophagitis, unspecified;Gastro-esophageal reflux disease with esophagitis;Rectal Bleeding episodic, Esophagitis acute on chronic, GERD, Encounter for Medication refill Presentation: 01/31 19:27 Chief complaint: Patient states: x3 days filling toilet up with blood. Feels tm6 lightheaded, low back pain. Coronavirus screen: Client denies travel out of the [place] in the last 14 days. Ebola Screen: Patient negative for fever greater than or equal to 101.5 degrees Fahrenheit, and additional compatible Ebola Virus Disease symptoms Patient denies exposure to infectious person. Patient denies travel to an Ebola-affected area in the 21 days before illness onset. No symptoms or risks identified at this time. Initial Sepsis Screen: Does the patient meet any 2 criteria? No. Patient's initial sepsis screen is negative. Does the patient have a suspected source of infection? No. Patient's initial sepsis screen is negative. Risk Assessment: Do you want to hurt yourself or someone else? Patient reports no desire to harm self or others. Onset of symptoms was January 29, 2024. 19:27 Method Of Arrival: Ambulatory tm6 19:27 Acuity: REMI 3 tm6 Triage Assessment: 19:27 General: Appears in no apparent distress. Behavior is calm, cooperative. Pain: tm6 Complains of pain in lumbar area, left low back and right low back Pain currently is 1 out of 10 on a pain scale. EENT: No signs and/or symptoms were reported regarding the EENT system. Neuro: Level of Consciousness is awake, alert, obeys commands, Oriented to person, place, time, situation. Cardiovascular: Patient's skin is warm and dry. Cardiovascular: Reports lightheadedness. Respiratory: Airway is patent Respiratory effort is even, unlabored, Respiratory pattern is regular, symmetrical. GI: Abdomen is flat, non-distended, Reports rectal bleeding, bloody stool. : No signs and/or symptoms were reported regarding the genitourinary system. Derm: No signs and/or symptoms reported regarding the dermatologic system. Musculoskeletal: Reports pain in lumbar area, left low back and right low back. Historical: - Allergies: 19:26 No Known Allergies; tm6 - PMHx: 19:26 Depression/Anxiety; tm6 - PSHx: 19:26 left eye; tm6 - Immunization history:: Flu vaccine is not up to date. - Infectious Disease History:: Denies. - Social history:: Smoking status: Patient reports use of chewing tobacco. Patient uses alcohol, occasionally. - Family history:: not pertinent. Screenin:07 [facility] ED Fall Risk Assessment (Adult) History of falling in the last 3 months, lg3 including since admission No falls in past 3 months (0 pts) Confusion or Disorientation No (0 pts) Intoxicated or Sedated No (0 pts) Impaired Gait No (0 pts) Mobility Assist Device Used No (0 pt) Altered Elimination No (0 pt) Score/Fall Risk Level 0 - 2 = Low Risk Oriented to surroundings, Maintained a safe environment, Educated pt \T\ family on fall prevention, incl call for assistance when getting out of bed, Assessed \T\ reinforced patient's understanding of fall precautions. Abuse screen: Denies threats or abuse. Denies injuries from another. Nutritional screening: No deficits noted. Tuberculosis screening: No symptoms or risk factors identified. Assessment: 23:07 General: Appears in no apparent distress. comfortable, Behavior is calm, cooperative. lg3 Pain: Complains of pain in lumbar area Pain currently is 2 out of 10 on a pain scale. Quality of pain is described as pressure. Neuro: No deficits noted. Lubin Agitation-Sedation Scale (RASS): 0 - Alert and Calm Level of Consciousness is awake, alert, obeys commands, Oriented to person, place, time, situation. Cardiovascular: No deficits noted. Denies chest pain, shortness of breath, Capillary refill < 3 seconds Clubbing of nail beds is absent JVD is absent Patient's skin is warm and dry. Respiratory: No deficits noted. Airway is patent Respiratory effort is even, unlabored, Respiratory pattern is regular, symmetrical. GI: Reports rectal bleeding, bloody stool. : No deficits noted. No signs and/or symptoms were reported regarding the genitourinary system. EENT: No deficits noted. No signs and/or symptoms were reported regarding the EENT system. Derm: No deficits noted. No signs and/or symptoms reported regarding the dermatologic system. Skin is intact, is healthy with good turgor, Skin is dry, Skin is normal, Skin temperature is warm. Musculoskeletal: No deficits noted. Circulation, motion, and sensation intact. Range of motion: intact in all extremities. Vital Signs: 19:26 Pulse 92; Temp 98.8(O); Pulse Ox 99% on R/A; Weight 90.72 kg; Height 6 ft. 0 in. ; Pain tm6 2/10; 19:27 BP 97 / 56; MAP 66 mmHg; tm6 23:07 BP 104 / 63; Pulse 89; Resp 18 S; Temp 98.2(O); lg3 19:26 Body Mass Index 27.12 (90.72 kg, 182.88 cm) tm6 19:26 Pain Scale: Adult tm6 [place] Coma Score: 02/01 18:24 Eye Response: spontaneous(4). Motor Response: obeys commands(6). Verbal Response: sp4 oriented(5). Total: 15. ED Course: 01/31 18:36 Patient arrived in ED. im 19:10 Jackson Dickey MD is Attending Physician. sp4 19:27 Arm band placed on right wrist. tm6 19:30 Triage completed. tm6 20:11 Initial lab(s) drawn, by me, sent to lab. Urine collected: clean catch specimen, clear. lg3 Inserted saline lock: 20 gauge in right antecubital area, using aseptic technique. Blood collected. Flushed with 10 mL NS. 20:11 PT-INR Sent. lg3 20:12 CBC with Diff Sent. lg3 20:12 CMP Sent. lg3 20:12 Lipase Sent. lg3 20:12 Urinalysis w/ reflexes Sent. lg3 20:53 CT Abd/Pelvis - IV Contrast Only In Process Unspecified. EDMS 22:54 Emmanuel Kapadia MD is Referral Physician. sp4 23:07 Patient has correct armband on for positive identification. Placed in gown. Bed in low lg3 position. Call light in reach. Side rails up X 1. Client placed on continuous cardiac and pulse oximetry monitoring. NIBP monitoring applied. Door closed. Noise minimized. Warm blanket given. Pillow given. Family accompanied patient. 23:07 Served as a field care coordinator during rectal exam. lg3 23:10 IV discontinued, intact, bleeding controlled, No redness/swelling at site. Pressure lg3 dressing applied. Administered Medications: 20:12 Drug: NS 0.9% IV 1000 ml IV at 1 bolus Per protocol; to be given as a bolus over 60 lg3 minutes Route: IV; Rate: 1 bolus; Site: left antecubital; 21:00 Follow up: Response: No adverse reaction; IV Status: Completed infusion; IV Intake: lg3 1000ml Medication: 23:07 VIS not applicable for this client. lg3 Intake: 21:00 IV: 1000ml; Total: 1000ml. lg3 Outcome: 22:56 Discharge ordered by . spPerla 23:09 Discharged to home ambulatory, lg3 23:09 Condition: stable 23:09 Discharge instructions given to patient, Instructed on discharge instructions, follow up and referral plans. medication usage, Demonstrated understanding of instructions, follow-up care, medications, Prescriptions given X 2, 23:10 Patient left the ED. lg3 Signatures: Dispatcher [employer] EDTammie Chiang, RN RN lg3 Jackson Dickey MD MD sp4 Betsy Mathew Tawney RN RN tm6
--- NOTE | 2024-02-01 22:57 | EDPHYS ---
Physician Documentation [facility] Name: Jkaob Mckeon Age: 33 yrs Sex: Male : 1990 Arrival Date: 02/01/2024 Time: 18:33 Bed 12 Private MD: ED Physician Jackson Dickey HPI: 01/31 19:10 This 33 yrs old Male presents to ER via Unassigned with complaints of Rectal sp4 Bleeding, Dizziness, Low Back Pain. 02/01 18:24 Patient presents with complaint of several episodes of rectal bleeding also persistent sp4 back pain.. Historical: - Allergies: 01/31 19:26 No Known Allergies; tm6 - PMHx: 19:26 Depression/Anxiety; tm6 - PSHx: 19:26 left eye; tm6 - Immunization history:: Flu vaccine is not up to date. - Infectious Disease History:: Denies. - Social history:: Smoking status: Patient reports use of chewing tobacco. Patient uses alcohol, occasionally. - Family history:: not pertinent. ROS: 02/01 18:24 Constitutional: Negative for fever, chills, and weight loss, Eyes: Negative for injury, sp4 pain, redness, and discharge, ENT: Negative for injury, pain, and discharge, Neck: Negative for injury, pain, and swelling, Abdomen/GI: Positive for rectal bleeding and back pain All other systems are negative, Exam: 18:24 Constitutional: This is a well developed, well nourished patient who is awake, alert, sp4 and in no acute distress. Head/Face: Normocephalic, atraumatic. Eyes: Pupils equal round and reactive to light, extra-ocular motions intact. Lids and lashes normal. Conjunctiva and sclera are not injected. Cornea within normal limits. Periorbital areas with no swelling, redness, or edema. ENT: Nares patent. No nasal discharge, no septal abnormalities noted. Tympanic membranes are normal and external auditory canals are clear. Oropharynx with no redness, swelling, or masses, exudates, or evidence of obstruction, uvula midline. Mucous membranes moist. Neck: Trachea midline, no thyromegaly or masses palpated, and no cervical lymphadenopathy. Supple, full range of motion without nuchal rigidity, or vertebral point tenderness. Chest/axilla: Normal chest wall appearance and motion. Nontender with no deformity. No lesions are appreciated. Cardiovascular: Regular rate and rhythm with a normal S1 and S2. No gallops, murmurs, or rubs. Normal PMI, no JVD. No pulse deficits. Respiratory: Lungs have equal breath sounds bilaterally, clear to auscultation and percussion. No rales, rhonchi or wheezes noted. No increased work of breathing, no retractions or nasal flaring. Abdomen/GI: Soft, with normal bowel sounds. No distension or tympany. No guarding or rebound. No evidence of tenderness throughout. Back: No spinal tenderness. No costovertebral tenderness. Male : Rectal exam - No fissures, no fistula, no blood , no melena, normal tone, No Hemorrhoids, overall normal rectal digital exam , Incident Response Analyst present for exam Skin: Warm, dry with normal turgor. Normal color with no rashes, no lesions, and no evidence of cellulitis. MS/ Extremity: Pulses equal, no cyanosis. Neurovascular intact. Full, normal range of motion. Neuro: Awake and alert, GCS 15, oriented to person, place, time, and situation. Cranial nerves II-XII grossly intact. Motor strength 5/5 in all extremities. Sensory grossly intact. Psych: Awake, alert, with orientation to person, place and time. Behavior, mood, and affect are within normal limits Vital Signs: 01/31 19:26 Pulse 92; Temp 98.8(O); Pulse Ox 99% on R/A; Weight 90.72 kg; Height 6 ft. 0 in. ; Pain tm6 2/10; 19:27 BP 97 / 56; MAP 66 mmHg; tm6 23:07 BP 104 / 63; Pulse 89; Resp 18 S; Temp 98.2(O); lg3 19:26 Body Mass Index 27.12 (90.72 kg, 182.88 cm) tm6 19:26 Pain Scale: Adult tm6 [place] Coma Score: 02/01 18:24 Eye Response: spontaneous(4). Motor Response: obeys commands(6). Verbal Response: sp4 oriented(5). Total: 15. MDM: 01/31 19:17 Medical Screening Exam initiated sp4 02/01 18:24 Differential diagnosis: hemorrhoids, fissure, abscess, pilonidal cyst, condyloma. Data sp4 reviewed: vital signs, nurses notes. Consideration of Admission/Observation Escalation of care including admission/observation considered. ED course: CT reveals signs of esophagitis. Patient reports symptoms of GERD. Will advise follow-up with Dr. Lundberg with gastroenterology. No sings of rectal bleeding on exam. . 01/31 19:34 Order name: CBC with Diff; Complete Time: 22:43 sp4 01/31 19:34 Order name: CMP; Complete Time: 22:43 sp4 01/31 19:34 Order name: Lipase; Complete Time: 22:43 sp4 01/31 19:34 Order name: Urinalysis w/ reflexes; Complete Time: 22:43 sp4 01/31 19:34 Order name: PT-INR; Complete Time: 22:43 sp4 01/31 19:34 Order name: CT Abd/Pelvis - IV Contrast Only; Complete Time: 22:43 sp4 01/31 19:34 Order name: IV Saline Lock; Complete Time: 20:11 sp4 01/31 19:34 Order name: Labs collected and sent; Complete Time: 20:11 sp4 Administered Medications: 01/31 20:12 Drug: NS 0.9% IV 1000 ml IV at 1 bolus Per protocol; to be given as a bolus over 60 lg3 minutes Route: IV; Rate: 1 bolus; Site: left antecubital; 21:00 Follow up: Response: No adverse reaction; IV Status: Completed infusion; IV Intake: lg3 1000ml Disposition: 02/01 18:27 Chart complete. sp4 Disposition Summary: 02/01/24 22:56 Discharge Ordered Notes: Please see GI MD for upper endoscopy Location: Home sp4 Problem: new sp4 Symptoms: have improved sp4 Condition: Stable sp4 Diagnosis - Esophagitis, unspecified sp4 - Gastro-esophageal reflux disease with esophagitis sp4 - Rectal Bleeding episodic, Esophagitis acute on chronic, GERD, Encounter for sp4 Medication refill Followup: sp4 - With: Emmanuel Kapadia MD - When: 7 - 10 days - Reason: Recheck today's complaints Discharge Instructions: - Discharge Summary Sheet sp4 - Gastroesophageal Reflux Disease, Adult sp4 Forms: - Patient Portal Instructions sp4 Prescriptions: - Lexapro 20 mg Oral tablet - take 1 tablet ORAL route every morning for 30 days; 30 tablet; Refills: 0, sp4 Product Selection Permitted - omeprazole 40 mg Oral capsule,delayed release (e.c.) - dissolve 1 capsule ORAL route once daily; 90 capsule; Refills: 0, Product sp4 Selection Permitted Signatures: Dispatcher [employer] Tammie Brooks RN RN lg3 Jackson Dickey MD MD sp4 Melissa Bishop RN RN tm6
[2024-02-02 01:06] VITALS: O2SAT 99
[2024-02-02 01:17] VITALS: BP 104/63; TEMP 98.2
== END 2024-02-01 23:10 | disposition home or self-care (01) ==
LOC: ER 18:33
DX: K21.00 Gastro-esophageal reflux disease with esophagitis, without bleeding (principal); K62.5 Hemorrhage of anus and rectum; Z76.0 Encounter for issue of repeat prescription
CPT/HCPCS: 36415; 74177; 80053; 81003; 83690; 85025; 85610; 96360; 99284; J7030; Q9967

== ENCOUNTER 2024-10-13 20:43 | Emergency (ER) | payer SELFPAY ==
[2024-10-13] MEDS ORDERED: TETRACAINE HCL 0.5% 4ML OPTH ONE (20:51)
[2024-10-13] MEDS ORDERED: FLUORESCEIN SODIUM 1 MG/WRAP ONE (20:51)
[2024-10-13 21:51] LABS: Absolute Lymphocytes (CBC) 2.2 K/uL (0.7-4.9); Hematocrit 41.1 % (39.6-49.0); Hemoglobin 14.2 g/dL (13.6-17.9); MCH 28.0 pg (27.0-35.0); MCHC 34.5 g/dL (32.0-36.0); MCV 81.4 fL (80-100); MPV 8.3 fL (7.6-11.3); Nucleated RBC Absolute Count 0.0 (0-0); Nucleated Red Blood Cells % 0.0 % (0-0); RBC Red Blood Cell Count 5.06 M/uL (4.33-5.43); White Blood Count 7.90 thou/uL (4.3-10.9)
[2024-10-13] MEDS ORDERED: DIAZEPAM 10 MG/2 ML INJ SYRINGE ONE (22:05)
[2024-10-13] MEDS ORDERED: ONDANSETRON 4 MG/2 ML VIAL ONE (22:06)
[2024-10-13] MEDS ORDERED: NA CHLORIDE 0.9% 1,000 ML ONE (22:06)
[2024-10-13] MEDS ORDERED: KETOROLAC 30 MG/ML INJ ONE (22:06)
[2024-10-13] MEDS ORDERED: MORPHINE 4 MG/ML SYR ONE (22:06)
[2024-10-13 22:11] LABS: ALT/SGPT 51.0 U/L (16-61); AST/SGOT 31.0 U/L (15-37); Albumin 3.7 g/dL (3.4-5.0); Albumin/Globulin Ratio 1.1 (1.1-1.8); Alkaline Phosphatase 104.0 U/L (45-117); Anion Gap 7.9 mEq/L (5.0-15.0); BUN Blood Urea Nitrogen 16.0 mg/dL (7-18); Globulin 3.5 g/dL (2.3-3.5); Glucose Level 114.0 mg/dL (74-106); Potassium 3.9 mEq/L (3.5-5.1)
[2024-10-14] MEDS ORDERED: acetaZOLAMIDE 250 MG TAB ONE (00:02)
--- NOTE | 2024-10-14 00:33 | ER ---
Nurse's Notes [facility] Name: Jakob Mckeon Age: 34 yrs Sex: Male : 1990 Arrival Date: 10/13/2024 Time: 20:43 Bed 25 Private MD: Diagnosis: Acute Left exophthalmos, acute conjunctival edema, increased left orbital pressure and pain secondary to retrobulbar injection Presentation: 10/13 20:48 Chief complaint: Patient states: went to Dr. Box's office today at noon and had an al5 alcohol shot done on L eye. at 1700 the pain became a lot worse, pain is at 9/10, also experiencing nausea. Coronavirus screen: At this time, the client does not indicate any symptoms associated with coronavirus-19. Ebola Screen: No symptoms or risks identified at this time. Mechanism of Injury: alcohol shot from doctors office. The patient reports a positive loss of vision. Initial Sepsis Screen: Does the patient meet any 2 criteria? No. Patient's initial sepsis screen is negative. Does the patient have a suspected source of infection? No. Patient's initial sepsis screen is negative. Risk Assessment: Do you want to hurt yourself or someone else? Patient reports no desire to harm self or others. Onset of symptoms was October 13, 2024. 20:48 Method Of Arrival: Ambulatory al5 20:48 Acuity: REMI 3 al5 Triage Assessment: 20:50 General: Appears in no apparent distress. uncomfortable, Behavior is calm, cooperative. al5 Pain: Complains of pain in left eye Pain currently is 9 out of 10 on a pain scale. EENT: L eye taped up by doctors office. Reports pain in left eye. Neuro: Level of Consciousness is awake, alert, obeys commands, Oriented to person, place, time, situation. Cardiovascular: Capillary refill < 3 seconds Patient's skin is warm and dry. Respiratory: Airway is patent Respiratory effort is even, unlabored, Respiratory pattern is regular, symmetrical. GI: No signs and/or symptoms were reported involving the gastrointestinal system. : No signs and/or symptoms were reported regarding the genitourinary system. Derm: Skin is intact, is healthy with good turgor, Skin is pink, warm \T\ dry. normal. Musculoskeletal: Circulation, motion, and sensation intact. Range of motion: intact in all extremities. Historical: - Allergies: 20:50 No Known Allergies; al5 - PMHx: 20:50 Depression/Anxiety; al5 - PSHx: 20:50 left eye; al5 - Immunization history:: Adult Immunizations up to date. - Infectious Disease History:: Denies. - Social history:: Smoking status: Patient reports use of chewing tobacco. - Family history:: not pertinent. Screenin:51 [facility] ED Fall Risk Assessment (Adult) History of falling in the last 3 months, al5 including since admission No falls in past 3 months (0 pts) Confusion or Disorientation No (0 pts) Intoxicated or Sedated No (0 pts) Impaired Gait No (0 pts) Mobility Assist Device Used No (0 pt) Altered Elimination No (0 pt) Score/Fall Risk Level 0 - 2 = Low Risk Oriented to surroundings, Maintained a safe environment, Hourly rounding (assess needs \T\ fall precautionary measures) done. Abuse screen: Denies threats or abuse. Denies injuries from another. Nutritional screening: No deficits noted. Tuberculosis screening: No symptoms or risk factors identified. Assessment: 20:51 Reassessment: see triage assessment. al5 22:00 Reassessment: Patient appears in no apparent distress at this time. Patient and/or jb4 family updated on plan of care and expected duration. Pain level reassessed. Patient is alert, oriented x 3, equal unlabored respirations, skin warm/dry/pink. 23:00 Reassessment: Patient appears in no apparent distress at this time. Patient and/or jb4 family updated on plan of care and expected duration. Pain level reassessed. Patient is alert, oriented x 3, equal unlabored respirations, skin warm/dry/pink. 10/14 00:47 Reassessment: Patient appears in no apparent distress at this time. Patient and/or jb4 family updated on plan of care and expected duration. Pain level reassessed. Patient is alert, oriented x 3, equal unlabored respirations, skin warm/dry/pink. 01:05 Reassessment: NURSE TO NURSE REPORT GIVEN TO NIDIA MATOS. ha1 Vital Signs: 10/13 20:48 BP 128 / 86; Pulse 79; Resp 18; Temp 98.2; Pulse Ox 99% on R/A; Weight 104.33 kg; al5 Height 6 ft. 3 in. ; 22:00 BP 119 / 71; Pulse 61; Resp 16; Pulse Ox 98% on R/A; jb4 10/14 00:47 BP 117 / 59; Pulse 61; Resp 16; Pulse Ox 96% on R/A; jb4 10/13 20:48 Body Mass Index 28.75 (104.33 kg, 190.5 cm) al5 Nevin Coma Score: 03:55 Eye Response: spontaneous(4). Motor Response: obeys commands(6). Verbal Response: sp4 oriented(5). Total: 15. ED Course: 10/13 20:43 Patient arrived in ED. im 20:46 Jackson Dickey MD is Attending Physician. sp4 20:50 Triage completed. al5 20:50 Arm band placed on right wrist. Patient placed in the treatment room, in view of staff al5 members, on pulse oximetry. 20:52 Patient has correct armband on for positive identification. Placed in gown. Bed in low ha1 position. Call light in reach. Side rails up X 1. Adult w/ patient. 21:43 CBC with Diff Sent. ha1 21:43 CMP Sent. ha1 21:43 Inserted saline lock: 20 gauge in right antecubital area, using aseptic technique. ha1 Blood collected. Flushed with 10 mL NS. 23:55 initiated transfer with [facility] \T\[id number]. Doc to Doc \T\[id number]. [facility] declined pt\T\[id number]. [facility] 23:56 initiated transfer with [facility]. [facility] 10/14 00:27 Aide Lee RN is Primary Nurse. ha1 00:40 pt was accepted to [facility]. Accepting Arturo Osorio \T\0031. Accepting admin sunil Baires \T\0031. [facility] to transfer pt once nurse to nurse is complete. 01:25 No provider procedures requiring assistance completed. Patient transferred, IV remains ha1 in place. Administered Medications: 10/13 22:05 Drug: NS 0.9% IV 1000 ml IV at 1 bolus Per protocol; to be given as a bolus over 60 ha1 minutes Route: IV; Rate: 1 bolus; Site: right antecubital; 10/14 01:22 Follow up: Response: No adverse reaction; IV Status: Completed infusion 1 10/13 22:05 Drug: Diazepam IVP 5 mg IVP once Route: IVP; Site: right antecubital; ha1 22:30 Follow up: Response: No adverse reaction; Marked relief of symptoms; Anxiety decreased ha1 22:07 Drug: Ondansetron IVP 4 mg IVP once; over 2 minutes Route: IVP; Site: right antecubital;ha1 22:30 Follow up: Response: No adverse reaction; Marked relief of symptoms ha1 22:09 Drug: TORadol - Ketorolac IVP 30 mg IVP once Route: IVP; Site: right antecubital; ha1 22:30 Follow up: Response: No adverse reaction; Marked relief of symptoms ha1 22:11 Drug: morphine IVP or IV 4 mg IVP once over 4 mins Route: IVP; Infused Over: 4 mins; ha1 Site: right antecubital; 22:30 Follow up: Response: No adverse reaction; Marked relief of symptoms; Pain is decreased; ha1 RASS: Alert and Calm (0) 23:10 Drug: Tetracaine Ophthalmic Drops 0.5 % 1 drops Ophthalmic once {Note: administered by [facility] ER physician..} Route: Ophthalmic; Site: both eyes; 23:40 Drug: Droperidol IVP 2.5 mg IVP once Route: IVP; Site: right antecubital; 4 10/14 00:00 Follow up: Response: No adverse reaction; Marked relief of symptoms ha1 00:04 Drug: Diamox Sequels PO Extended Release Capsule 500 mg PO once Route: PO; 4 00:30 Follow up: Response: No adverse reaction ha1 01:21 Drug: morphine IVP or IV 4 mg IVP once over 4 mins Route: IVP; Infused Over: 4 mins; ha1 Site: right antecubital; 01:24 Follow up: Response: No adverse reaction; Pain is decreased; RASS: Alert and Calm (0) ha1 01:21 Not Given (Physician Discretion): [id number] mg IVP once; over 1 to 2 minutes ha1 Medication: 10/13 20:51 VIS not applicable for this client. al5 Outcome: 10/14 00:33 ER care complete, transfer ordered by MD. varma 01:25 Transferred by ground EMS to [facility], Transfer form ha1 completed. X-rays sent w/ patient. 01:25 Condition: stable 01:25 Instructed on the need for transfer, Demonstrated understanding of instructions, 01:26 Patient left the ED. jb4 Signatures: Kirby Murrieta, RN RN jb4 Aide Lee RN RN ha1 Jackson Dickey MD MD sp4 Betsy Mathew Kelsey Maroul f Argelia Rainey RN RN al5 Corrections: (The following items were deleted from the chart) 00:58 10/13 23:57 initiated transfer with [facility] 10/14 00:59 08 23:55 initiated transfer with [facility]
--- NOTE | 2024-10-14 00:33 | EDPHYS ---
Physician Documentation [facility] Name: Jakob Mckeon Age: 34 yrs Sex: Male : 1990 Arrival Date: 10/13/2024 Time: 20:43 Bed 25 Private MD: ED Physician Jackson Dickey HPI: 10/13 20:46 This 34 yrs old Male presents to ER via Unassigned with complaints of Eye sp4 Pain - left. 10/14 03:53 Patient presents with worsening left eye pain , there is moderate pain in the left eye. sp4 There is also proptosis. This morning patient had left eye retrobulbar injection by local ophthalmology, with absolute alcohol, Marcaine and lidocaine mixture. This was done to alleviate pain behind the left eye. 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 Patient is currently being evaluated for left eye enucleation at [facility] ophthalmology clinic . Patient states that pain became intolerable and he presents to the ER for evaluation.. Historical: - Allergies: 10/13 20:50 No Known Allergies; al5 - PMHx: 20:50 Depression/Anxiety; al5 - PSHx: 20:50 left eye; al5 - Immunization history:: Adult Immunizations up to date. - Infectious Disease History:: Denies. - Social history:: Smoking status: Patient reports use of chewing tobacco. - Family history:: not pertinent. ROS: 10/14 03:55 Constitutional: Negative for fever, chills, and weight loss, positive for moderate to sp4 severe left eye pain and positive for left eye proptosis. All other systems are negative, Exam: 03:55 Visual Acuity: Normal visual acuity of the right eye, left eye chronic vision loss, sp4 03:55 Constitutional: This is a well developed, well nourished patient who is awake, alert, and in no acute distress. Head/Face: Normocephalic, atraumatic. Eyes: Right eye exam is normal. Examination of the left eye -significant left eye proptosis, chronic opacification of the right cornea, chronic vision loss of the left eye, moderate upper and lower left eyelid swelling, lower eyelid swelling with significant inversion of eyelashes. Moderate to severe conjunctival edema. Further exam not possible. Left eye pressure is 30. ENT: Nares patent. No nasal discharge, no septal abnormalities noted. Tympanic membranes are normal and external auditory canals are clear. Oropharynx with no redness, swelling, or masses, exudates, or evidence of obstruction, uvula midline. Mucous membranes moist. Neck: Trachea midline, no thyromegaly or masses palpated, and no cervical lymphadenopathy. Supple, full range of motion without nuchal rigidity, or vertebral point tenderness. Chest/axilla: Normal chest wall appearance and motion. Nontender with no deformity. No lesions are appreciated. Cardiovascular: Regular rate and rhythm with a normal S1 and S2. No gallops, murmurs, or rubs. No pulse deficits. Respiratory: Lungs have equal breath sounds bilaterally, clear to auscultation and percussion. No rales, rhonchi or wheezes noted. No increased work of breathing, no retractions or nasal flaring. Abdomen/GI: Soft, with normal bowel sounds. No distension or tympany. No guarding or rebound. No evidence of tenderness throughout. Back: No spinal tenderness. No costovertebral tenderness. Skin: Warm, dry with normal turgor. Normal color with no rashes, no lesions, and no evidence of cellulitis. MS/ Extremity: Pulses equal, no cyanosis. Neurovascular intact. Full, normal range of motion. Neuro: Awake and alert, GCS 15, oriented to person, place, time, and situation. Cranial nerves II-XII grossly intact. Motor strength 5/5 in all extremities. Sensory grossly intact. Psych: Awake, alert, with orientation to person, place and time. Behavior, mood, and affect are within normal limits Vital Signs: 10/13 20:48 BP 128 / 86; Pulse 79; Resp 18; Temp 98.2; Pulse Ox 99% on R/A; Weight 104.33 kg; al5 Height 6 ft. 3 in. ; 22:00 BP 119 / 71; Pulse 61; Resp 16; Pulse Ox 98% on R/A; jb4 10/14 00:47 BP 117 / 59; Pulse 61; Resp 16; Pulse Ox 96% on R/A; jb4 10/13 20:48 Body Mass Index 28.75 (104.33 kg, 190.5 cm) al5 [place] Coma Score: 03:55 Eye Response: spontaneous(4). Motor Response: obeys commands(6). Verbal Response: sp4 oriented(5). Total: 15. Procedures: 10/13 23:46 Performed eye pressures. Right eye 14 , Left eye 30 , Measured with Tonopen . sp4 MDM: 23:06 Medical Screening Exam initiated sp4 10/14 03:55 Differential diagnosis: Corneal abrasion of Corneal ulcer of Foreign body in Acute sp4 glaucoma in Ultraviolet keratitis in. Data reviewed: vital signs, nurses notes, old medical records. Consideration of Admission/Observation Escalation of care including admission/observation considered. ED course: Patient was discussed with [facility]. [facility] staff certified nurse midwife states that there is no surgical ophthalmology capacity at this time. Transfer to [facility] was declined secondary to not available oculoplastic surgeon , patient was then discussed with you at [facility] and accepted for transfer there. We have discussed possibility of lateral canthotomy here in ER however we would prefer patient is first assessed by oculoplastic specialist. Patient was transferred to [facility] without lateral canthotomy. 10/13 21:12 Order name: CBC with Diff; Complete Time: 23:05 sp4 10/13 21:12 Order name: CMP; Complete Time: 23:05 sp4 10/13 20:52 Order name: Eye Tray; Complete Time: 21:02 sp4 10/13 20:52 Order name: Fluoresene Opth strip; Complete Time: 21:02 sp4 10/13 21:12 Order name: IV Saline Lock; Complete Time: 21:43 sp4 10/13 21:12 Order name: Labs collected and sent; Complete Time: 21:43 sp4 Administered Medications: 10/13 22:05 Drug: NS 0.9% IV 1000 ml IV at 1 bolus Per protocol; to be given as a bolus over 60 ha1 minutes Route: IV; Rate: 1 bolus; Site: right antecubital; 10/14 01:22 Follow up: Response: No adverse reaction; IV Status: Completed infusion ha1 10/13 22:05 Drug: Diazepam IVP 5 mg IVP once Route: IVP; Site: right antecubital; ha1 22:30 Follow up: Response: No adverse reaction; Marked relief of symptoms; Anxiety decreased ha1 22:07 Drug: Ondansetron IVP 4 mg IVP once; over 2 minutes Route: IVP; Site: right antecubital;ha1 22:30 Follow up: Response: No adverse reaction; Marked relief of symptoms ha1 22:09 Drug: TORadol - Ketorolac IVP 30 mg IVP once Route: IVP; Site: right antecubital; ha1 22:30 Follow up: Response: No adverse reaction; Marked relief of symptoms ha1 22:11 Drug: morphine IVP or IV 4 mg IVP once over 4 mins Route: IVP; Infused Over: 4 mins; ha1 Site: right antecubital; 22:30 Follow up: Response: No adverse reaction; Marked relief of symptoms; Pain is decreased; ha1 RASS: Alert and Calm (0) 23:10 Drug: Tetracaine Ophthalmic Drops 0.5 % 1 drops Ophthalmic once {Note: administered by 4 ER physician..} Route: Ophthalmic; Site: both eyes; 23:40 Drug: Droperidol IVP 2.5 mg IVP once Route: IVP; Site: right antecubital; jb4 10/14 00:00 Follow up: Response: No adverse reaction; Marked relief of symptoms ha1 00:04 Drug: Diamox Sequels PO Extended Release Capsule 500 mg PO once Route: PO; jb4 00:30 Follow up: Response: No adverse reaction ha1 01:21 Drug: morphine IVP or IV 4 mg IVP once over 4 mins Route: IVP; Infused Over: 4 mins; ha1 Site: right antecubital; 01:24 Follow up: Response: No adverse reaction; Pain is decreased; RASS: Alert and Calm (0) ha1 01:21 Not Given (Physician Discretion): [id number] mg IVP once; over 1 to 2 minutes ha1 Disposition Summary: 10/14/24 00:33 Transfer Ordered Notes: [facility] sp4 Reason: Higher level of care sp4 Condition: Stable sp4 Problem: new sp4 Symptoms: have improved sp4 Accepting Physician: Mathew Human Resources Office Assistant (10/14/24 01:26) jb4 Diagnosis - Acute Left exophthalmos, acute conjunctival edema, increased left orbital pressure sp4 and pain secondary to retrobulbar injection Forms: - Medication Reconciliation Form sp4 - SBAR form sp4 Signatures: Dispatcher [employer] Kirby Howe RN RN jb4 Aide Lee RN RN ha1 Jackson Dickey MD MD sp4 Argelia Rainey RN RN al5 Corrections: (The following items were deleted from the chart) 01:26 00:33 Mathew Human Resources Office Assistant sp4 jb4
[2024-10-14] MEDS ORDERED: MORPHINE 4 MG/ML SYR ONE (01:16)
[2024-10-14 01:36] VITALS: TEMP 98.2
[2024-10-14 01:38] VITALS: BP 117/59; O2SAT 96
== END 2024-10-14 01:26 | disposition short-term general hospital (02) ==
LOC: ER 20:43
DX: H05.25 Intermittent exophthalmos (principal); T41.3X5A Adverse effect of local anesthetics, initial encounter
CPT/HCPCS: 36415; 80053; 85025; 96361; 96374; 96375; 99285; J1790; J2405; J3360; J7030

== ENCOUNTER 2024-11-25 17:27 | Emergency (ER) | payer OTHER, SELFPAY ==
--- NOTE | 2024-11-25 17:46 | EDPHYS ---
Physician Documentation [facility] Name: Jakob Mckeon Age: 34 yrs Sex: Male : 1990 Arrival Date: 11/25/2024 Time: 17:27 Bed DIS3 Private MD: ED Physician Noah Lynch HPI: 11/25 18:27 This 34 yrs old Male presents to ER via Unassigned with complaints of Port Removal. kb 18:27 Pt is a 34 year old male who presents for removal of midline. States he completed kb antibiotics, but the home health nurse couldn't come out until Saturday. Pt was told to come to the ER to have it removed. . Historical: - Allergies: 19:20 No Known Drug Allergies; ll1 - PMHx: 19:20 Depression/Anxiety; ll1 - PSHx: 19:20 left eye; ll1 - Immunization history:: Adult Immunizations up to date. - Infectious Disease History:: Denies. - Social history:: Smoking status: unknown. ROS: 17:44 Constitutional: As per HPI kb Exam: 18:26 Constitutional: This is a well developed, well nourished patient who is awake, alert, kb and in no acute distress. Head/Face: Normocephalic, atraumatic. ENT: Moist Mucous membranes Respiratory: Respirations even and unlabored. No increased work of breathing. Talking in full sentences Skin: Warm, dry with normal turgor. Normal color. MS/ Extremity: Pulses equal, no cyanosis. Neurovascular intact. Full, normal range of motion. Neuro: Awake and alert, GCS 15, oriented to person, place, time, and situation. 18:27 Musculoskeletal/extremity: midline in right upper arm without erythema, swelling. kb Vital Signs: 17:33 Resp 17; Pain 0/10; ll1 17:33 Pain Scale: Adult ll1 Procedures: 18:29 Performed Midline removed easily with tip intact. kb MDM: 17:33 Medical Screening Exam initiated kb 18:26 Differential diagnosis: midline malfunction, removal of midline. Data reviewed: vital kb signs, nurses notes. Counseling: I had a detailed discussion with the patient and/or guardian regarding the historical points, exam findings, and any diagnostic results supporting the discharge/admit diagnosis, the need for outpatient follow up, a family practitioner, to return to the emergency department if symptoms worsen or persist or if there are any questions or concerns that arise at home. 11/25 17:36 Order name: Misc. Order: remove picc line; Complete Time: 19:24 kb Administered Medications: No medications were administered Disposition Summary: 11/25/24 17:45 Discharge Ordered Notes: Location: Home kb Condition: Stable kb Diagnosis - Encounter for removal of midline kb Followup: kb - With: Emergency Department - When: As needed - Reason: Worsening of condition Followup: kb - With: Private Physician - When: 2 - 3 days - Reason: Recheck today's complaints, Continuance of care, Re-evaluation by your physician Discharge Instructions: - Discharge Summary Sheet kb - Midline Catheter kb Forms: - Medication Reconciliation Form kb - Antibiotic Education kb - Prescription Opioid Use kb - Patient Portal Instructions kb - Leadership Thank You Letter kb Signatures: Tabitha Higginbotham FNP-C FNP-Stephanie Jay RN RN ll1
--- NOTE | 2024-11-26 17:53 | ER ---
Nurse's Notes [facility] Name: Jakob Mckeon Age: 34 yrs Sex: Male : 1990 Arrival Date: 11/25/2024 Time: 17:27 Bed DIS3 Private MD: Diagnosis: Encounter for removal of midline Presentation: 11/25 17:33 Chief complaint: Patient states: Patient seen, treated, and released by CLAY Low ll1 before official triage. Coronavirus screen: Client denies travel out of the [place] in the last 14 days. At this time, the client does not indicate any symptoms associated with coronavirus-19. Ebola Screen: Patient denies travel to an Ebola-affected area in the 21 days before illness onset. Initial Sepsis Screen: Does the patient meet any 2 criteria? No. Patient's initial sepsis screen is negative. Does the patient have a suspected source of infection? No. Patient's initial sepsis screen is negative. Risk Assessment: Do you want to hurt yourself or someone else? Patient reports no desire to harm self or others. Onset of symptoms was November 25, 2024. 17:33 Method Of Arrival: Ambulatory 1 17:33 Acuity: REMI 4 ll1 19:23 Onset of symptoms was November 25, 2024. 1 Triage Assessment: 17:44 General: Appears in no apparent distress. Behavior is calm, cooperative, appropriate ll1 for age, Reports wants PICC line removed. See. CLAY Low note for further details. Pain: Denies pain. Historical: - Allergies: 19:20 No Known Drug Allergies; ll1 - PMHx: 19:20 Depression/Anxiety; ll1 - PSHx: 19:20 left eye; ll1 - Immunization history:: Adult Immunizations up to date. - Infectious Disease History:: Denies. - Social history:: Smoking status: unknown. Screenin:22 [facility] ED Fall Risk Assessment (Adult) History of falling in the last 3 months, ll1 including since admission No falls in past 3 months (0 pts) Confusion or Disorientation No (0 pts) Intoxicated or Sedated No (0 pts) Impaired Gait No (0 pts) Mobility Assist Device Used No (0 pt) Altered Elimination No (0 pt) Score/Fall Risk Level 0 - 2 = Low Risk Maintained a safe environment, Hourly rounding (assess needs \T\ fall precautionary measures) done. Abuse screen: Denies threats or abuse. Nutritional screening: No deficits noted. Tuberculosis screening: No symptoms or risk factors identified. Assessment: 17:53 Reassessment: No changes from previously documented assessment. Patient and/or family ll1 updated on plan of care and expected duration. Pain level reassessed. Vital Signs: 17:33 Resp 17; Pain 0/10; ll1 17:33 Pain Scale: Adult ll1 ED Course: 17:29 Patient arrived in ED. cj3 17:33 Tabitha Higginbotham FNP-C [facility] kb 17:33 Noah Lynch MD is Attending Physician. kb 17:33 Patient has correct armband on for positive identification. Bed in low position. ll1 Provided Education on: ER procedures and process. 17:35 Arm band placed on. ll1 17:53 No provider procedures requiring assistance completed. Patient did not have IV access ll1 during this emergency room visit. 19:20 Triage completed. ll1 Administered Medications: No medications were administered Medication: 19:23 VIS not applicable for this client. ll1 Outcome: 17:45 Discharge ordered by . kb 17:53 Patient left the ED. ll1 17:53 Discharged to home ambulatory, ll1 17:53 Condition: stable 17:53 Discharge instructions given to patient, Instructed on discharge instructions, follow up and referral plans. Demonstrated understanding of instructions, follow-up care, left with verbal discharge instructions only Signatures: Tabitha Higginbotham FNP-C FNP-Ckb Lewis, Lynsay, RN RN ll1 Nathalie Rodriguez cj3
== END 2024-11-25 17:53 | disposition home or self-care (01) ==
LOC: ER 17:27
DX: Z45.2 Encounter for adjustment and management of vascular access device (principal)
CPT/HCPCS: 99282